=== PATIENT | male | born 1990 | race Caucasian/White ===

== ENCOUNTER 2021-06-29 11:02 | Inpatient (IN) | payer MEDICAID ==
[~2021-06-29] VITALS: Ht 182.9 cm; Wt 107.1 kg
[2021-06-29] MEDS ORDERED: LORazepam 2 MG TABLET PO PRN (12:45)
[2021-06-29] MEDS ORDERED: HALOPERIDOL 5 MG TABLET PO PRN (12:45)
[2021-06-29] MEDS ORDERED: ZOLPIDEM TARTRATE 10 MG TABLET PO PRN (12:45)
[2021-06-29 13:25] LABS: GLUCOMETER DEV NAME(LOC) POC.BV
[2021-06-29 14:54] VITALS: BP 138/89
[2021-06-29] MEDS ORDERED: INFLUENZA VIRUS VACCINE QVS 2021-22 (6MO+)/PF 60 MCG/0.5 ML SYRINGE IM. ONE (15:45)
[2021-06-29 16:18] VITALS: BP 129/80
[2021-06-30 00:27] VITALS: BP 126/79
[2021-06-30 07:54] LABS: BASOPHILS % (AUTO) 0.5 % (0.0-2.0); EOSINOPHILS % (AUTO) 2.5 % (1.0-6.0); HEMATOCRIT 42.3 % (41-53); LYMPHOCYTES % (AUTO) 30.9 % (22.0-44.0); MEAN CORPUSCULAR HGB CONC 35.5 G/dL (31.0-37.0); MEAN CORPUSCULAR VOLUME 96 fL (80-100); MONOCYTES # (AUTO) 0.5 K/uL (0.1-1.0); MONOCYTES % (AUTO) 7.6 % (2.0-9.0); NEUTROPHILS # (AUTO) 3.7 K/uL (1.8-7.7); NEUTROPHILS % (AUTO) 58.5 % (40.0-70.0); PLATELET COUNT (AUTO) 199 K/uL (150-450); RED BLOOD CELL COUNT(AUTO) 4.43 MIL/uL (4.50-5.90); RED CELL DISTRIBUTION WIDTH 12.9 % (11.5-14.5)
[2021-06-30 08:01] LABS: HEMOGLOBIN A1C 4.7 % (3.8-5.6)
[2021-06-30 08:21] VITALS: BP 126/65
[2021-06-30 08:22] LABS: ALANINE AMINOTRANSFERASE 50 U/L (12-78); ALBUMIN 4.1 g/dL (3.4-5.0); ALKALINE PHOSPHATASE 68 U/L (46-116); ANION GAP 7 mmol/L (8-16); ASPARTATE AMINOTRANSFERASE 18 U/L (15-37); BILIRUBIN,TOTAL 0.5 mg/dL (0.1-1.0); CALCIUM, TOTAL 9.1 mg/dL (8.8-10.5); CARBON DIOXIDE 31 mmol/L (22-29); CHLORIDE 107 mmol/L (98-107); CHOLESTEROL 218 mg/dL (131-200); CREATININE 0.98 mg/dL (0.60-1.30); GLOMERULAR FILTR. RATE CALC > 60 mL/min (>60); GLUCOSE,RANDOM 99 mg/dL (70-110); HDL CHOLESTEROL 31 mg/dL (40-60); LDL CHOL (CALC.) 153 mg/dL (0-130); POTASSIUM 4.8 mmol/L (3.5-5.1); SODIUM SERUM 145 mmol/L (136-145); THYROID STIMULATING HORMONE 0.96 uIU/mL (0.36-3.74); TOTAL PROTEIN, SERUM 7.8 g/dL (6.4-8.2); TRIGLYCERIDES 170 mg/dL (15-150); UREA NITROGEN, BLOOD 12 mg/dL (7-18)
[2021-06-30] MEDS: QUEtiapine FUMARATE 25 MG TABLET PO SCH (12:34)
[2021-06-30 16:11] VITALS: BP 117/52
[2021-06-30] MEDS: QUEtiapine FUMARATE 100 MG TABLET PO SCH (20:12)
[2021-07-01 00:21] VITALS: BP 120/71
[2021-07-01 08:15] VITALS: BP 123/73
[2021-07-01] MEDS: QUEtiapine FUMARATE 25 MG TABLET PO SCH (08:21)
[2021-07-01 16:50] VITALS: BP 135/77
[2021-07-01] MEDS ORDERED: MAG HYDROX/AL HYDROX/SIMETH 30 ML SUSP UDCUP PO PRN (19:30)
[2021-07-01] MEDS: QUEtiapine FUMARATE 100 MG TABLET PO SCH (20:05)
[2021-07-02 00:10] VITALS: BP 128/78
[2021-07-02 08:08] VITALS: BP 130/75
[2021-07-02] MEDS: QUEtiapine FUMARATE 25 MG TABLET PO SCH (08:32)
[2021-07-02] MEDS ORDERED: QUET100T PO (12:26)
[2021-07-02] MEDS ORDERED: QUET25TA PO (12:26)
[2021-07-03 07:30] LABS: AMPHET/METH SCREEN,URINE NEGATIVE (NEGATIVE); BARBITURATE SCREEN, URINE NEGATIVE (NEGATIVE); BENZODIAZEPINES SCREEN,URINE NEGATIVE (NEGATIVE); CANNABINOID SCREEN,URINE POSITIVE (NEGATIVE); COCAINE SCREEN,URINE NEGATIVE (NEGATIVE); METHADONE SCREEN, URINE NEGATIVE (NEGATIVE); OPIATE SCREEN,URINE NEGATIVE (NEGATIVE)
[2021-07-03 08:16] LABS: APPEARANCE,URINE CLEAR (CLEAR); BILIRUBIN,URINE NEGATIVE (NEGATIVE); GLUCOSE, URINE (UA) NEGATIVE (NEGATIVE); KETONES,URINE NEGATIVE (NEGATIVE); LEUKOCYTE ESTERASE ,URINE NEGATIVE (NEGATIVE); NITRATE,URINE NEGATIVE (NEGATIVE); OCCULT BLOOD,URINE NEGATIVE (NEGATIVE); PH,URINE 6.5 (5.0-8.0); PROTEIN,URINE NEGATIVE (NEGATIVE); UROBILINOGEN,URINE 0.2 mg/dL (<=1.0)
[2021-07-03 08:17] LABS: PHENCYCLIDINE SCREEN,URINE NEGATIVE (NEGATIVE)
== END 2021-07-02 15:38 | disposition home or self-care (01) | DRG 753 ==
LOC: B2S 12:52
PROVIDERS: ADMIT Psychiatry & Neurology Child & Adolescent Psychiatry; ATTEND Psychiatry & Neurology Child & Adolescent Psychiatry
DX: F31.4 Bipolar disorder, current episode depressed, severe, without psychotic features (principal); E78.5 Hyperlipidemia, unspecified; F15.90 Other stimulant use, unspecified, uncomplicated; F17.200 Nicotine dependence, unspecified, uncomplicated; Z20.822 Contact with and (suspected) exposure to COVID-19; Z71.6 Tobacco abuse counseling; Z88.8 Allergy status to other drugs, medicaments and biological substances
CPT/HCPCS: 80053; 80061; 80307; 81003; 83036; 84443; 85025; G0480